=== PATIENT | male | born 1965 | race Caucasian/White ===

== ENCOUNTER 2019-06-27 10:25 | Inpatient (IN) | payer OTHER ==
[~2019-06-27] VITALS: Ht 182.9 cm; Wt 78.5 kg
--- NOTE | 2019-06-27 10:36 | NUR ---
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
[2019-06-27 10:42] VITALS: BP 129/85
[2019-06-27] MEDS ORDERED: B1 HIGH POTENC100 MG PO (11:33)
--- NOTE | 2019-06-27 11:46 | NUR ---
AT BEDSIDE DISCUSSING POC WITH PT AND SPOUSE.
--- NOTE | 2019-06-27 12:30 | NUR ---
CONSULT OBTAINED AT THIS TIME BY
--- NOTE | 2019-06-27 13:26 | NUR ---
PT TRANSPORTED TO RADIOLOGY IN STABLE CONDITION VIA STRETCHER ACCOMPANIED BY ZORA CHRISTENSEN
[2019-06-27 14:13] LABS: GFR > 60 ML/MIN (>=60 (CALC)); GFR FOR AFR.AMER. > 60 ML/MIN (>=60 (CALC))
[2019-06-27 14:23] LABS: HEMATOCRIT 47.4 % (39.0-50.0); HEMOGLOBIN 15.7 g/dl (14.0-18.0); MEAN CELL VOLUME 92.2 fL CALC (80.0-100.0); MEAN CORPUSCULAR HGB 30.5 pG CALC (26.0-32.0); MEAN CORPUSCULAR HGB CONC 33.1 g/dL CAL (32.0-36.0); RED BLOOD COUNT 5.14 mill/uL (4.70-6.10); RED CELL DISTRI WIDTH 12.4 % (11.5-15.5)
[2019-06-27 14:40] LABS: MAGNESIUM 2.2 mg/dL (1.6-2.3)
[2019-06-27 14:41] LABS: ALBUMIN 4.1 g/dL (3.2-5.0); ALKALINE PHOSPHATASE 58 u/l (38-126); ANION GAP 13 (6-22 (CALC)); BUN 18 mg/dL (9-20); BUN/CREATININE RATIO 20 (12-20 (CALC)); CARBON DIOXIDE 26 mmol/l (22-30); CHLORIDE 105 mmol/l (95-108); CREATININE 0.9 mg/dL (0.7-1.3); GFR > 60 ML/MIN (>=60 (CALC)); GFR FOR AFR.AMER. > 60 ML/MIN (>=60 (CALC)); POTASSIUM 4.6 mmol/l (3.5-5.1); SGOT/AST 20 u/l (17-59); SODIUM 139 mmol/l (137-146); TOTAL PROTEIN 6.8 g/dL (6.3-8.2)
[2019-06-27 14:49] LABS: BILIRUBIN, TOTAL 0.7 mg/dL (0.0-1.4)
--- NOTE | 2019-06-27 15:30 | NUR ---
PT ARRIVED BACK TO MED/SURG ROOM 272 IN STABLE CONDITION VIA STRETCHER ACCOMPANIED BY RAMÓN ALEMAN AND ZORA CHRISTENSEN;PT ASSISTED TO HOSPITAL BED WITH X3 PERSON ASSIST;IV SITE NOTED TO BE INFILTRATED AFTER MRI,SITE REMOVED WITH CATHETER INTACT;PT DENIES ANY CURRENT PAIN OR DISCOMFORTS;RESPIRATIONS EVEN AND UNLABORED ON RA;PT DENIES ANY ADDITIONAL NEEDS AT THIS TIME AND IS ENCOURAGED TO CALL FOR ASSISTANCE IF NEEDED;CALL LIGHT IN REACH;WILL CONTINUE TO MONITOR
[2019-06-27 16:22] VITALS: BP 112/78
[2019-06-27 19:25] VITALS: BP 114/64
--- NOTE | 2019-06-27 19:45 | NUR ---
VS TAKEN BY ZORA @ 1920 ASSESED @ THIS TIME. FOCUSED ASSESMENT COMPLETE. PT DENIES HEADACHE, PHOTOPHOBIA, OR VISUAL DISTURBANCE. PT A/O X3 W/ NO APPARENT NEUROLOGICAL DEFECIT. SCLERA NOTED TO BE RED. PLAN OF CARE REVIEWED W/ PT WHO VERBALIZES UNDERSTANDING AND DENIES QUESTIONS. PT DENIES ANY NEEDS @ THIS TIME, DECLINES OFFER FOR HS SNACK. CALL BARNHART WITHIN REACH, AGREES TO CALL PRN. ITEMS WITHIN REACH. BED LOCKED IN LOW POSITION W/ BEDRAILS UP X2.
[2019-06-28] VITALS (20 sets, daily range): BP systolic 102–136; BP diastolic 59–83
--- NOTE | 2019-06-28 00:57 | NUR ---
PT APPEARS TO BE SLEEPING COMFORTABLY, NO APPARENT DISTRESS, RESPIRATIONS REGULAR AND UNLABORED. CALL BARNHART REMAINS WITHIN REACH, ITEMS REMAIN WITHIN REACH, BED REMAINS LOCKED IN LOW POSITION W/ BEDRAILS UP X2.
--- NOTE | 2019-06-28 07:25 | NUR ---
change of shift report received from jeffery claros. pt in supine position in room. pt is able to make his needs known. no s/s of agitation. specification writer will continue to monitor
[2019-06-28 09:08] LABS: HEMATOCRIT 47.4 % (39.0-50.0); HEMOGLOBIN 15.5 g/dl (14.0-18.0); IMMATURE GRANULOCYTES 0.3 % (0.0-5.0); MEAN CELL VOLUME 95.4 fL CALC (80.0-100.0); MEAN CORPUSCULAR HGB 31.2 pG CALC (26.0-32.0); MEAN CORPUSCULAR HGB CONC 32.7 g/dL CAL (32.0-36.0); NEUT# 4.46 thou/uL (1.82-7.42); RED BLOOD COUNT 4.97 mill/uL (4.70-6.10); RED CELL DISTRI WIDTH 12.6 % (11.5-15.5)
[2019-06-28 09:20] LABS: ALBUMIN 3.8 g/dL (3.2-5.0); ALKALINE PHOSPHATASE 50 u/l (38-126); BUN 18 mg/dL (9-20); BUN/CREATININE RATIO 22 (12-20 (CALC)); CHLORIDE 109 mmol/l (95-108); CREATININE 0.8 mg/dL (0.7-1.3); GFR > 60 ML/MIN (>=60 (CALC)); GFR FOR AFR.AMER. > 60 ML/MIN (>=60 (CALC)); POTASSIUM 4.4 mmol/l (3.5-5.1); SGOT/AST 24 u/l (17-59); SODIUM 136 mmol/l (137-146); TOTAL PROTEIN 6.7 g/dL (6.3-8.2)
[2019-06-28 09:23] LABS: ANION GAP 13 (6-22 (CALC)); BILIRUBIN, TOTAL 1.1 mg/dL (0.0-1.4); CARBON DIOXIDE 18 mmol/l (22-30)
--- NOTE | 2019-06-28 12:00 | NUR ---
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 medication running at 100ml/100mg per order. group underwriter continues to monitor pt's vs q 15 mins to 2omins. pt denies pain at iv site. pt denies pain or discomfort. group underwriter will continue to monitor. pt's spouse at bedside.
--- NOTE | 2019-06-28 16:00 | NUR ---
PT IS STABLE. ABLE TO MAKE HIS NEEDS KNOWN. NO S/S OF AGITATION. DENIES PAIN OR DISCOMFORT
--- NOTE | 2019-06-28 19:45 | NUR ---
VS TAKEN BY ZORA @ 2643 ASSESED @ THIS TIME. FOCUSED ASSESMENT COMPLETE. PT DENIES HEADACHE, PHOTOPHOBIA, OR VISUAL DISTURBANCE. PT A/O X3 W/ NO APPARENT NEUROLOGICAL DEFECIT. SCLERA NOTED TO BE RED. PT REPORTS HE IS "TIRED". SPOUSE AT BEDSIDE. PLAN OF CARE REVIEWED W/ PT AND SPOUSE WHO VERBALIZE UNDERSTANDING AND DENY QUESTIONS. PT DENIES ANY NEEDS @ THIS TIME, DECLINES OFFER FOR HS SNACK. CALL BARNHART WITHIN REACH, AGREES TO CALL PRN. ITEMS WITHIN REACH. BED LOCKED IN LOW POSITION W/ BEDRAILS UP X2.
[2019-06-29] VITALS (18 sets, daily range): BP systolic 105–125; BP diastolic 62–74
[2019-06-29 04:46] LABS: HEMOGLOBIN 14.8 g/dl (14.0-18.0); IMMATURE GRANULOCYTES 0.4 % (0.0-5.0); MEAN CELL VOLUME 91.9 fL CALC (80.0-100.0); MEAN CORPUSCULAR HGB 30.9 pG CALC (26.0-32.0); MEAN CORPUSCULAR HGB CONC 33.6 g/dL CAL (32.0-36.0); NEUT# 5.7 thou/uL (1.82-7.42); RED BLOOD COUNT 4.79 mill/uL (4.70-6.10); RED CELL DISTRI WIDTH 12.3 % (11.5-15.5)
[2019-06-29 05:05] LABS: ALBUMIN 3.7 g/dL (3.2-5.0); ALKALINE PHOSPHATASE 52 u/l (38-126); BILIRUBIN, TOTAL 0.7 mg/dL (0.0-1.4); BUN 19 mg/dL (9-20); BUN/CREATININE RATIO 20 (12-20 (CALC)); CHLORIDE 106 mmol/l (95-108); CREATININE 0.9 mg/dL (0.7-1.3); GFR > 60 ML/MIN (>=60 (CALC)); GFR FOR AFR.AMER. > 60 ML/MIN (>=60 (CALC)); POTASSIUM 3.9 mmol/l (3.5-5.1); SGOT/AST 16 u/l (17-59); SODIUM 137 mmol/l (137-146); TOTAL PROTEIN 6.3 g/dL (6.3-8.2)
[2019-06-29 05:08] LABS: ANION GAP 11 (6-22 (CALC)); CARBON DIOXIDE 24 mmol/l (22-30)
--- NOTE | 2019-06-29 05:38 | NUR ---
PT AWAKE, RESTING IN BED, WATCHING TV. DENIES ANY DISCOMFORT OR NEEDS @ THIS TIME. ASSESMENT UNCHANGED FROM BASELINE. VS TAKEN BY ROLL FORMING SUPERVISOR @ [id number] ASSESSED. AM LAB VALUES ASSESSED. CALL BARNHART REMAINS WITHIN REACH, AGREES TO CALL PRN. BED REMAINS LOCKED IN LOW POSITION W/ TOP BEDRAILS UP X2.
--- NOTE | 2019-06-29 07:10 | NUR ---
CHANGE OF SHIFT REPORT RECEIVED FROM RAMÓN PHILLIPS. PT SITTING UP IN BED. PT DENIES PAIN. PT DENIES IV PAIN. IV SITE INTACT. POC REVIEWED WITH PT. PT VERBALIZED UNDERSTANDING. CALL LIGHT WITHIN EASY REACH. PT IS ABLE TO MAKE HIS NEEDS KNOWN. JUNIOR LINUX SYSTEMS ADMINISTRATOR WILL CONTINUE TO MONITOR
--- NOTE | 2019-06-29 13:13 | NUR ---
PT ABELCET COMPLETED AT THIS TIME. LINE FLUSHED WITH 1OML OF D5. NORMAL SALINE STARTED AT THIS TIME PER ORDER. VSS. PT DENIES PAIN OR DISCOMFORT. PT DENIES PAIN AT INFUSION SITE. INFUSION SITE INTACT. PT DENIES SHORTNESS OF BREATH. TISSUE RECOVERY TECHNICIAN WILL CONTINUE TO MONITOR. Q 30 MINUTES VITAL SIGN MONITORING CONTINUES.
--- NOTE | 2019-06-29 15:49 | NUR ---
PT RESTING COMFORTABLY IN ROOM. PT DENIES ANY CONCERNS. CONFECTIONERY DROPS MACHINE OPERATOR WILL CONTINUE TO MONITOR
--- NOTE | 2019-06-29 19:00 | NUR ---
RECEIVED REPORT FROM NURSE HELM, PATIENT RESTING IN BED, IN ROOM, NO DISCOMFORTS NOTED CALL LIGHT AT REACH.
--- NOTE | 2019-06-29 20:15 | NUR ---
PATIENT ALERT ORIENTED X 3 ABLE TO MAKE NEEDS KNOWN, WITH SALINE LOCK ON RIGHT UPPER ARM PATENT AND FLUSHES WELL, DENIES PAIN OR DISCOMFORTS, LBM 06/28, SPOUSE IN ROOM CALL LIGHT AT REACH.
--- NOTE | 2019-06-30 01:05 | NUR ---
PATIENT APPEARS TO BE SLEEPING AT THIS TIME, EVEN UNLABORED BREATHING CALL LIGHT AT REACH.
[2019-06-30 03:40] VITALS: BP 111/65
--- NOTE | 2019-06-30 04:06 | NUR ---
RESTING IN BED WITH EYES CLOSED, NO DISCOMFORTS NOTED AT THIS TIME, EVEN UNLABORED BREATHING.CALL LIGHT AT REACH.
--- NOTE | 2019-06-30 07:00 | NUR ---
SHIFT CHANGE REPORT, PT AWAKE ALERT AND ORIENTED RESTING IN BED, DENIES PAIN/DISCOMFORT AT THIS TIME, IVF INFUSING AT THIS TIME, SPOUSE SITTING AT BEDSIDE, WILL CONTINUE TO MONITOR.
[2019-06-30 08:26] VITALS: BP 113/65
[2019-06-30 09:26] LABS: HEMATOCRIT 42.2 % (39.0-50.0); HEMOGLOBIN 14.4 g/dl (14.0-18.0); IMMATURE GRANULOCYTES 0.5 % (0.0-5.0); MEAN CELL VOLUME 91.3 fL CALC (80.0-100.0); MEAN CORPUSCULAR HGB 31.2 pG CALC (26.0-32.0); MEAN CORPUSCULAR HGB CONC 34.1 g/dL CAL (32.0-36.0); NEUT# 4.05 thou/uL (1.82-7.42); RED BLOOD COUNT 4.62 mill/uL (4.70-6.10); RED CELL DISTRI WIDTH 12.4 % (11.5-15.5)
[2019-06-30 09:52] LABS: ALBUMIN 3.6 g/dL (3.2-5.0); ALKALINE PHOSPHATASE 46 u/l (38-126); ANION GAP 12 (6-22 (CALC)); BUN 18 mg/dL (9-20); BUN/CREATININE RATIO 21 (12-20 (CALC)); CARBON DIOXIDE 23 mmol/l (22-30); CHLORIDE 106 mmol/l (95-108); CREATININE 0.9 mg/dL (0.7-1.3); GFR > 60 ML/MIN (>=60 (CALC)); GFR FOR AFR.AMER. > 60 ML/MIN (>=60 (CALC)); POTASSIUM 3.6 mmol/l (3.5-5.1); SGOT/AST 16 u/l (17-59); SODIUM 137 mmol/l (137-146); TOTAL PROTEIN 6.1 g/dL (6.3-8.2)
[2019-06-30 09:56] LABS: BILIRUBIN, TOTAL 0.4 mg/dL (0.0-1.4)
--- NOTE | 2019-06-30 12:00 | NUR ---
RESTING IN BED, MEDICAL TEAM ROUNDED AND DISCUSSED PLAN OF CARE WITH PT AND SPOUSE, BOTH STATED UNDERSTANDING.
--- NOTE | 2019-06-30 15:43 | NUR ---
SITTING UP IN CHAIR AT THIS TIME, TOLERATING TREATMENT WELL, ALL NEEDS ADDRESSED.
[2019-06-30 16:05] VITALS: BP 114/74
--- NOTE | 2019-06-30 20:01 | NUR ---
REPORT RECEIVED FROM RAMÓN ANN. PT RESTING IN BED, ALERT AND ORIENTED, PT DENIES ANY PAIN OR DISCOMFORT AT THIS TIME. RESPIRATIONS EVEN AND UNLABORED ON RA, LUNGS SOUND CLEAR. PEDAL PULSES ARE STRONG. SAFETY PRECAUTIONS IN PLACE. WILL CONTINUE TO MONITOR.
[2019-06-30 20:03] VITALS: BP 109/61
--- NOTE | 2019-07-01 00:06 | NUR ---
PT RESTING IN BED, RESPIRATIONS EVEN AND UNLABORED ON RA. NO S/S OF DISTRESS AT THIS TIME SAFETY PRECAUTIONS IN PLACE. WILL CONTINUE TO MONITOR.
[2019-07-01 04:09] VITALS: BP 104/62
[2019-07-01 05:26] LABS: HEMATOCRIT 43.5 % (39.0-50.0); HEMOGLOBIN 14.6 g/dl (14.0-18.0); IMMATURE GRANULOCYTES 0.8 % (0.0-5.0); MEAN CELL VOLUME 91.8 fL CALC (80.0-100.0); MEAN CORPUSCULAR HGB 30.8 pG CALC (26.0-32.0); MEAN CORPUSCULAR HGB CONC 33.6 g/dL CAL (32.0-36.0); NEUT# 3.88 thou/uL (1.82-7.42); RED BLOOD COUNT 4.74 mill/uL (4.70-6.10); RED CELL DISTRI WIDTH 12.4 % (11.5-15.5)
[2019-07-01 05:50] LABS: ALBUMIN 3.6 g/dL (3.2-5.0); ALKALINE PHOSPHATASE 49 u/l (38-126); ANION GAP 13 (6-22 (CALC)); BUN 19 mg/dL (9-20); BUN/CREATININE RATIO 20 (12-20 (CALC)); CARBON DIOXIDE 22 mmol/l (22-30); CHLORIDE 105 mmol/l (95-108); GFR > 60 ML/MIN (>=60 (CALC)); GFR FOR AFR.AMER. > 60 ML/MIN (>=60 (CALC)); SGOT/AST 20 u/l (17-59); SODIUM 136 mmol/l (137-146); TOTAL PROTEIN 6.1 g/dL (6.3-8.2)
[2019-07-01 05:53] LABS: BILIRUBIN, TOTAL 0.7 mg/dL (0.0-1.4)
--- NOTE | 2019-07-01 07:05 | NUR ---
REPORT RECEIVED FROM RAMÓN DUGAN;PT APPEARS TO BE SLEEPING IN SEMI FOWLERS POSITION;NO S/S OF DISTRESS NOTED;RESPIRATIONS EVEN AND UNLABORED ON RA;IV FLUIDS INFUSING WITH EASE PER ORDER;ALL SAFETY PRECAUTIONS IN PLACE WITH BED IN THE LOWEST POSITION AND CALL LIGHT IN REACH;WILL CONTINUE TO MONITOR
--- NOTE | 2019-07-01 08:40 | NUR ---
PT RESTING IN SEMI FOWLERS POSITION WITH SPOUSE AT BEDSIDE,A&O X3;VS OBTAINED AND ASSESSMENT COMPLETED;PT DENIES ANY CURRENT PAIN OR DISCOMFORTS,PAIN SCALE AND REPORTING EDUCATED;RESPIRATIONS EVEN AND UNLABORED ON RA,CLEAR LUNG SOUNDS;ABDOMEN SOFT ON PALPATION AND ACTIVE IN ALL 4 QUADRANTS,STRONG PEDAL PULSES;SKIN INTACT;#22G TO LEFT WRIST INFUSING NS PER ORDER,SITE APPEARS HEALTHY;PT PRE MEDICATED WITH TYLENOL AND BENYDRAL PER ORDER;PT DENIES ANY ADDITIONAL NEEDS AT THIS TIME AND IS ENCOURAGED TO CALL FOR ASSISTANCE IF NEEDED;FALL PRECAUTIONS IN PLACE WITH CALL LIGHT IN REACH;WILL CONTINUE TO MONITOR
[2019-07-01 08:46] VITALS: BP 119/63
--- NOTE | 2019-07-01 11:29 | NUR ---
AT BEDSIDE DISCUSSING POC.
--- NOTE | 2019-07-01 11:30 | NUR ---
PT RESTING IN SEMI FOWLERS POSITION WITH SPOUSE AT BEDSIDE;RESPIRATIONS EVEN AND UNLABORED ON RA;PT DENIES ANY CURRENT PAIN OR NEEDS;IV ABX INFUSING WITH EASE PER ORDER;PT DENIES ANY ADDITIONAL NEEDS AT THIS TIME AND IS ENCOURAGED TO CALL FOR ASSISTANCE IF NEEDED;CALL LIGHT IN REACH;WILL CONTINUE TO MONITOR
--- NOTE | 2019-07-01 11:40 | NUR ---
CONSULT WITH OBTAINED AT THIS TIME, AT BEDSIDE
--- NOTE | 2019-07-01 13:39 | NUR ---
ECHO AT BEDSIDE
[2019-07-01 15:17] VITALS: BP 108/65
--- NOTE | 2019-07-01 15:20 | NUR ---
PT RESTING IN SEMI FOWLERS POSITION WATCHING TV;RESPIRATIONS EVEN AND UNLABORED ON RA;PT DENIES ANY CURRENT PAIN OR DISCOMFORTS;IV FLUIDS INFUSING WITH EASE TO LEFT WRIST;PT EXPRESSES EAGERNESS TO GO HOME, AWAITING D/C ORDER AND MEDICATIONS FROM [facility].PT DENIES ANY ADDITIONAL NEEDS AT THIS TIME;ENCOURAGED TO CALL FOR ASSISTANCE IF NEEDED;CALL LIGHT IN REACH;WILL CONTINUE TO MONITOR
[2019-07-01] MEDS ORDERED: FLUCONAZOLE200 MG PO (15:57)
--- NOTE | 2019-07-01 17:38 | NUR ---
ALL DISCHARGE INSTRUCTIONS PROVIDED AT THIS TIME;FLUCONAZOLE PROVIDED TO BY [facility] AND PT INSTRUCTED ON USAGE.PT ALOS INSTRUCTED ON LAB ORDER FOR 1 WEEK;PT DENIES ANY CURRENT NEEDS OR QUESTIONS;IV SITE REMOVED WITH CATHETER INTACT;WHEELCHAIR TO BE PROVIDED FOR D/C HOME;AWAITING SPOUSE FOR TRANSPORTATION HOME;PT ENCOURAGED TO CALL FOR ASSISTANCE IF NEEDED;CALL LIGHT IN REACH;WILL CONTINUE TO MONITOR
--- NOTE | 2019-07-01 18:21 | NUR ---
Discharge instructions given. Patient verbalizes understanding of same. Discharged in stable condition via Ambulatory to Home with spouse. All belongings sent with pt. PT AMBULATED WITH A STEADY GAIT TO [facility] ACCOMPANIED BY SPOUSE FOR D/C HOME;PT DID TAKE HOME MEDICATION WITH HIM PROVIDED BY [facility].SPOUSE UPDATED ON ALL DISCHARGE INFORMATION AND DENIES ANY ADDITIONAL QUESTIONS.
== END 2019-07-01 18:21 | disposition home or self-care (01) | DRG 99 ==
LOC: MS2 10:25
PROVIDERS: ADMIT Internal Medicine; ATTEND Internal Medicine
PROC: 009U3ZX Drainage of Spinal Canal, Percutaneous Approach, Diagnostic (ICD-10-PCS; principal; 2019-06-27)
PROC: B01BZZZ Fluoroscopy of Spinal Cord (ICD-10-PCS; 2019-06-27)
DX: B45.1 Cerebral cryptococcosis (principal)
CPT/HCPCS: A9579; Q3014